=== PATIENT | male | born 1965 | race Two or more races ===

== ENCOUNTER 2017-01-08 22:47 | Emergency (ER) | payer SELFPAY ==
[~2017-01-08] VITALS: Ht 177.8 cm; Wt 69.0 kg
[2017-01-09] MEDS ORDERED: IBUPROFEN 600MG TABLET PO ONE (04:30)
[2017-01-09] MEDS ORDERED: TETANUS, DIPHTHERIA, PERTUSSIS VAC/PF 0.5ML (>7YR OLD) IM ONE (05:45)
[2017-01-09 06:09] VITALS: BP 126/84
== END 2017-01-09 06:59 | disposition home or self-care (01) ==
LOC: ER 22:47
DX: S01.112A Laceration without foreign body of left eyelid and periocular area, initial encounter (principal); Y08.89XA Assault by other specified means, initial encounter; Y93.89 Activity, other specified; Y92.89 Other specified places as the place of occurrence of the external cause; Y99.8 Other external cause status
CPT/HCPCS: 12011; 70450; 70486; 90471; 90715; 99284; X7700; Z7610